=== PATIENT | male | born 1955 | race African-American/Black ===

== ENCOUNTER 2016-12-06 14:45 | Observation (INO) | payer OTHER ==
--- NOTE | ~2016-12-06 | DS ---
Discharge Summary [facility] [address] [place] [place]. [address] NAME: JADE RESENDIZ JR : 53 STATUS : DIS Mihir PAT#: [id number] AGE: 61 ADM/REG DATE : 12/06/16 MR#: [id number] REPORT SERV DATE: 12/09/16 DICTATED BY: GEORGI OLMSTEAD DATE: 12/08/16 REPORT STATUS : Draft TRANSCRIBED BY: MODL DATE: 12/08/16 ADMISSION DATE: 12/06/2016 DISCHARGE DATE: 12/08/2016 INDICATION FOR ADMISSION: Chest pain with left upper extremity pain. DISCHARGE DIAGNOSES: 1. Chest pain, noncardiac with normal cardiac cath. 2. End-stage renal disease, dialyzing Thursday, Thursday, Thursday by right upper extremity AV fistula at [facility]. 3. Hepatitis C. 4. Hypertension. 5. Pulmonary hypertension with right ventricular systolic pressure of 36. 6. History of congestive heart failure. 7. History of lung mass status post biopsy demonstrating benign lesion. 8. Thrombocytopenia. HOSPITAL COURSE: The patient presented with chest pain and left upper extremity pain. His chest pain was somewhat migratory initially on the right side and migrating to the left lower chest. He felt weak with no nausea or vomiting. He subsequently left his grocery store and took some Goody powders and had aspirin. He noted improvement after walking outside. His blood pressure was noted to be in the 180s at time of his ER evaluation. There was a mild elevation in his troponin to 0.45. His EKG demonstrated some ST depression and the lateral leads. Cardiology was consulted and following evaluation, felt that he needed to have a cardiac cath. This was performed on 12/08/2016 and his coronaries were not diseased. No intervention was required. He had only some moderate changes and felt that the clinical findings on EKG and troponin were related to demand ischemia from hypertension. They subsequently signed off. His labs upon release revealed a potassium of 3.9, hemoglobin 11.3, platelet count of 104. BNP of 1807. He was having no complaints at time of release. He will follow up at [facility] for dialysis. DIET: Diet will be renal diet, 1500 mL fluid restriction per day. DISCHARGE MEDICATIONS: Hydrocodone 5/325 one t.i.d. p.r.n., nitroglycerin 0.4 mg sublingual p.r.n. chest pain, Prilosec 40 mg p.o. daily, clonidine 0.3 mg three times daily, calcium acetate 667 mg three tablets with meals, minoxidil 5 mg twice daily, Lopressor 50 mg twice daily, and Nicoderm 7 mg patch applied daily for smoking cessation. ACTIVITY: He will resume pre-hospital activity. DICTATED BY: Tanvir Odell/ADELA Discharge Summary [address] [address] NAME: JADE RESENDIZ : 53 STATUS : DIS Mihir PAT#: [id number] AGE: 61 ADM/REG DATE : 12/06/16 MR#: [id number] REPORT SERV DATE: 12/09/16 DICTATED BY: GEORGI OLMSTEAD DATE: 12/08/16 REPORT STATUS : Draft TRANSCRIBED BY: ADELA DATE: 12/08/16 Georgi Olmstead M.D. / [id number] CC: Tanvir Manning M.D.
--- NOTE | ~2016-12-06 | HP ---
History And Physical [facility] [address] [facility] [address] [place]. [address] NAME: JADE STEWART JR : 53 STATUS : ADM Mihir PAT#: [id number] AGE: 61 ADM/REG DATE : 12/06/16 MR#: [id number] REPORT SERV DATE: 12/06/16 DICTATED BY: DATE: REPORT STATUS : Draft TRANSCRIBED BY: MODFlakito DATE: 12/06/16 DATE OF ADMISSION: 12/06/2016 CHIEF COMPLAINT: Chest pain, left arm pain. HISTORY OF PRESENT ILLNESS: Mr. Stewart is a very pleasant, 61-year-old black male, well known to our service. He has end-stage renal disease, dialyzes at [facility] on Thursday, Thursday, and Thursday. He states, Thursday, went he went to dialysis, he was in his usual state of health, tolerated dialysis without any issues. Left the clinic approximately 8 a.m., then was at the at approximately 3:30 p.m. and developed chest pain. He states it went into his right shoulder and then left. He felt weak and just not himself. When he got up to the register he ate a peanut butter cup, then he had improvement in symptoms, went home. However, today he developed the chest pain again to the left and then on his way here he even had left arm pain. He is not having any pain right now. He did take some Goody's Powders prior to arrival and had aspirin here. He is experiencing no increase in shortness of breath. No associated nausea or diaphoresis with these episodes, but this chest pain and arm pain are very new and unusual. His blood pressure is also noted to be in the 180s. He states, most recently, his blood pressures have been very well controlled. He has not missed any of his medications. No recent medication changes. No fevers, chills, cough, or congestion. No heart studies a number of years. His last was an echocardiogram two years ago and before that he had a stress test, he thinks around 2006- 2007, and he has no formal cardiac followup. An additional history, he did say earlier in the week and even today, he feels like he is having memory issues. He forgot that it was Thursday and did say if he did not know that it was Thursday, he did go to dialysis in the morning, however, he called and got his appointment changed and did have a full treatment on Thursday. He states that this is new and unusual for him and states he still feels like his memory is not quite right today. PAST MEDICAL HISTORY: End-stage renal disease; hypertension; hepatitis C; reflux; pulmonary hypertension; lung mass, status post biopsy, found to be benign with MSSA; CHF is documented in his history, suspect it is diastolic dysfunction, I cannot find an EF on him. FAMILY MEDICAL HISTORY: Negative for end-stage renal disease. SOCIAL HISTORY: He lives with his sister and mother as well as his young child and his son. He states he is very stressed with trying to care for all of these people. He does continue to smoke, but has tried to cut back. No alcohol. He has a distant history of cocaine use, none recent. ALLERGIES: ALCOHOL. MEDICATIONS: The pharmacy is calling right now for a full list. He does tell me around this time that he takes minoxidil and clonidine and so we are going to give him a dose of that and we will look it and find his full list. History And Physical [address] [address] NAME: JADE STEWART JR : 53 STATUS : ADM Mihir PAT#: [id number] AGE: 61 ADM/REG DATE : 12/06/16 MR#: [id number] REPORT SERV DATE: 12/06/16 DICTATED BY: DATE: REPORT STATUS : Draft TRANSCRIBED BY: MODFlakito DATE: 12/06/16 REVIEW OF SYSTEMS: A 12-point review of systems obtained and negative with the exception of that in HPI. PHYSICAL EXAMINATION: VITAL SIGNS: Temperature 97.7, blood pressure is 185/96, respiratory rate 18, O2 saturation is 99%, heart rate 64. GENERAL: This is a pleasant, cooperative, black male. He is awake, alert, oriented, sitting up in the bed, in no acute distress. Answers questions appropriately. HEENT: Normocephalic and atraumatic. Conjunctivae clear. Sclerae anicteric. Pupils are equal and round. Oral mucosa is moist. NECK: Supple. Carotids are brisk. Neck veins are flat. No lymphadenopathy. RESPIRATIONS: Even and unlabored. Breath sounds are clear to auscultation. HEART: Rate is regular. No murmur, rub, or gallop. ABDOMEN: Soft and nontender. Bowel sounds are active. No masses or hepatosplenomegaly. No bruits. No CVA tenderness. BACK: Within normal limits. EXTREMITIES: Without any edema, cyanosis, clubbing. SKIN: Warm, dry, and intact. No unusual rashes or skin lesions. NEURO: No focal deficits. PSYCH: Mood and affect are very pleasant and appropriate. PERTINENT LABS AND X-RAYS: BNP of 1807. Sodium 135, potassium 4, chloride 98, CO2 of 30, BUN of 18, creatinine of 8.7, calcium 9.1, magnesium 2.2, troponin of 0.4. WBC is 3.7, H and H are 11 and 34, platelets 115,000. CT of the head is pending. Chest x-ray, negative for any acute findings. IMPRESSION: 1. Chest pain with radiation to left arm. 2. Accelerated hypertension. 3. End-stage renal disease. 4. History of congestive heart failure. 5. Memory issues. PLAN: Admit to monitored bed. CT of the head has already been ordered by the ER physician and is pending at this time. Serial cardiac enzymes. I will go ahead and order him some minoxidil and clonidine and continue his usual medicines when a full list can be obtained. We will probably need to check an echocardiogram if his pain continues or has elevated troponin. He probably does need a cardiac workup as he has not had one in some time and he does have significant risk factors. Further orders and recommendations pending clinical course. TU/ADELA JULIO CÉSAR [place] History And Physical [address] [address] NAME: JADE STEWART JR : 53 STATUS : ADM Mihir PAT#: [id number] AGE: 61 ADM/REG DATE : 12/06/16 MR#: [id number] REPORT SERV DATE: 12/06/16 DICTATED BY: DATE: REPORT STATUS : Draft TRANSCRIBED BY: ADELA DATE: 12/06/16 / [id number] CC: Tanvir Manning M.D.
--- NOTE | ~2016-12-06 | CN ---
Consultation Report [facility] [address] [place]. [address] NAME: TENZIN STEWART JR : 53 STATUS : ADM Mihir PAT#: [id number] AGE: 61 ADM/REG DATE : 12/06/16 MR#: [id number] REPORT SERV DATE: 12/07/16 DICTATED BY: SPENCER LIZARRAGA DATE: 12/07/16 REPORT STATUS : Draft TRANSCRIBED BY: MODL DATE: 12/07/16 CARDIOLOGY CONSULTATION DATE OF CONSULTATION: REQUESTING PROVIDERS: Dr. Guerrero and Dr. Pagan. INDICATIONS: Abnormal troponin. HISTORY OF PRESENT ILLNESS: Mr. Tenzin Stewart is a 61-year-old, man with a longstanding history of end-stage renal disease on hemodialysis for greater than thirteen years. He has a history of difficult to control hypertension. He was seen in the emergency room yesterday with chest pain, describes it as a bit of a migratory nature, right chest, left chest, sometimes to the arm, associated arm throbness, some nausea, some abdominal discomfort, he is now better, episodes waxed and waned. He presented to the emergency room, found to have abnormal ECG with ST depressions and abnormal troponin, was admitted to the Nephrology. Overnight, he has had some ongoing episodes of discomfort, now resolved and is feeling well. Symptoms began probably one to two days prior to admission, but possibly longer. He reports he has seen Dr. Rico in the past and he thinks he possibly had an arteriogram at some point, but does not remember any details. Ejection fraction not known at the present time. No orthopnea, PND, or lower extremity edema. PAST MEDICAL HISTORY: End-stage renal disease on hemodialysis, history of ongoing smoking, history of lung mass, hepatitis C, pulmonary hypertension. HOME MEDICATIONS: Listed in [facility] home medicine form and reviewed. ALLERGIES: RASH FROM RUBBING ALCOHOL. SOCIAL HISTORY: Ongoing smoking. FAMILY HISTORY: Reviewed. Noted for some relatives with coronary artery disease. REVIEW OF SYSTEMS: As per the HPI. Otherwise, all review of systems negative. PHYSICAL EXAMINATION: VITAL SIGNS: Blood pressure 179/92, pulse is 58, respiratory rate is 18, afebrile. GENERAL: Appears stated age, no distress. EYES: Sclerae anicteric, no arcus senilis. MOUTH: Oral mucosa moist, lips acyanotic. NECK: Jugular venous pressure normal, no carotid bruits. Consultation Report [facility] [id number] [place]. [address] NAME: TENZIN STEWART JR : 53 STATUS : ADM Mihir PAT#: [id number] AGE: 61 ADM/REG DATE : 12/06/16 MR#: [id number] REPORT SERV DATE: 12/07/16 DICTATED BY: SPENCER LIZARRAGA DATE: 12/07/16 REPORT STATUS : Draft TRANSCRIBED BY: MODL DATE: 12/07/16 LUNGS: Clear to auscultation bilaterally, normal inspiratory effort. Scattered rhonchi. CARDIAC: Regular rate and rhythm, no murmurs, gallops or rubs. ABDOMEN: Soft, nondistended, nontender. EXTREMITIES: No edema. SKIN: Warm and dry. NEURO/PSYCH: Alert and oriented, nonfocal, mood appropriate. DATA: Sodium is 132, potassium is 3.9, creatinine 9.8. Hemoglobin of 11.3. Troponin 0.4, 0.35, 0.37. BNP 1807. Electrocardiogram is sinus rhythm with lateral ST depressions consistent with ischemia. IMPRESSION: 1. Abnormal troponin with ST depressions and chest pain, question unstable angina. 2. End-stage renal disease, on hemodialysis. 3. Smoker. 4. Hypertension. RECOMMENDATIONS: Discussed situation with the patient. We will treat with aspirin, statin, heparin, beta jerry, and topical nitroglycerin. Plan to proceed with coronary arteriography and possible percutaneous intervention in the morning. Discussed the procedure with the patient addressing the rationale, logistics, and risks. Risks include, but not limited to bleeding, infection, vascular complications, myocardial infarction, stroke, cardiac perforation, possible emergent surgery. All questions were answered. RACHELE/ADELA Spencer Lizarraga M.D. / [id number] CC: Tanvir Manning M.D.
[2016-12-06 14:28] LABS: BASOPHILS 0.3 %; BASOPHILS ABSOLUTE 0.01 10/3/uL (0.0-0.16); EOSINOPHILS 1.6 %; EOSINOPHILS ABSOLUTE 0.06 10/3/uL (0.0-0.53); HEMATOCRIT 34.9 % (40.0-51.0); HEMOGLOBIN 11.6 g/dL (13.6-17.8); LYMPHOCYTES 29.9 %; MEAN CORPUS HGB CONC 33.2 g/dL (32.0-36.0); MEAN CORPUSCULAR HEMOGLOB 28.7 pg (26.0-34.0); MEAN CORPUSCULAR VOLUME 86.4 fL (80-100); MEAN PLATELET VOLUME 10.6 fL (9.2-13.0); MONOCYTES 10.1 %; MONOCYTES ABSOLUTE 0.37 10/3/uL (0.21-1.20); NEUTROPHILS 58.1 %; NEUTROPHILS ABSOLUTE 2.14 10/3/uL (2.02-8.40); PLATELET COUNT 115 10/3/uL (150-400); RBC DISTRIBUTION WIDTH 13.9 % (12.0-16.0); RED CELL COUNT 4.04 10/6/uL (4.7-6.1)
[2016-12-06 14:32] LABS: ER CBC TAT 0 Hrs 11 Mins; MANUAL DIFF NO %; WHITE BLOOD CELLS 3.7 10/3/uL (4.5-10.5)
[2016-12-06 14:44] LABS: INTERNATIONAL NORMAL RATI 1.1 UNITS (-); PARTIAL THROMBO TIME 34.3 SEC (22.5-37.2); PROTIME (NOT ORD) 14.4 SEC (12.0-14.5)
[~2016-12-06 14:45] MED LIST: *UNABLE1; ASAB PO; CAT3 PO; CENTRUM TAB1 TAB PO; CLONIDINE PO; HALF81 PO; LISINOPRIL; LISINOPRIL40 MG PO; LONITEN10 PO; LONITEN2.5 PO; LOP50 PO; LORTAB 5 PO; METOPROLOL; MINOXIDIL PO; MIRALAXPKT PO; MONOPRIL; NITROII20C TOP; NITROSTAT0.4 MG SL; NORV10 PO; NORV5 PO; PCET PO; PHOSLO; PHOSLO PO; PRILO PO; PRILOSEC40 MG PO; RENAGEL; RENAGEL PO; SPIRIVA INH; VANCO1P; VANCO1P IV; VASOTEC20 MG PO; ZINC220C PO; ZOCOR20 PO; ZOL100 PO; [UNRECOGNIZED DRUG - OTHER]; [UNRECOGNIZED DRUG - OTHER] PO
[2016-12-06 14:46] LABS: CALCIUM, SERUM 9.1 MG/DL (8.5-10.4); CHLORIDE, SERUM 98 MMOL/L (96-112)
[2016-12-06 14:47] LABS: BUN (BLOOD UREA NITROGEN) 18 MG/DL (6-23); CHEST PAIN PROFILE TAT 0 Hrs 26 Mins; CO2 (CARBON DIOXIDE) 30 MMOL/L (24-34); CREATININE 8.72 MG/DL (0.70-1.30); GFR AFRICAN AMERICAN 7 ML/MIN (>=60); GFR NON AFRICAN AMERICAN 6 ML/MIN (>=60); GLUCOSE, SERUM 123 MG/DL (60-99); SODIUM, SERUM 135 MMOL/L (135-148)
[2016-12-06] MEDS ORDERED: PHOSLO PO (15:43)
[2016-12-06] MEDS ORDERED: NORCO1 TA1 PO (15:43)
[2016-12-06] MEDS ORDERED: PRILOSEC40 MG PO (15:44)
[2016-12-06] MEDS ORDERED: CAT3 PO (15:44)
[2016-12-06] MEDS ORDERED: LONITEN2.5 PO (15:44)
[2016-12-06] MEDS ORDERED: LOP50 PO (15:44)
[2016-12-06] MEDS ORDERED: *UNABLE1 (15:44)
[2016-12-06 22:49] LABS: CPK 71 U/L (0-200)
[2016-12-06 22:53] LABS: CK-MB 2.7 NG/ML; TROPONIN I 0.35 NG/ML (<0.05)
[2016-12-07 05:19] LABS: BASOPHILS 0.3 %; BASOPHILS ABSOLUTE 0.01 10/3/uL (0.0-0.16); EOSINOPHILS 2.6 %; HEMATOCRIT 32.8 % (40.0-51.0); HEMOGLOBIN 11.3 g/dL (13.6-17.8); IMMATURE GRANULOCYTES 0.3 %; IMMATURE GRANULOCYTES ABSOLUTE 0.01 10/3/uL (0.0-0.11); LYMPHOCYTES 40.2 %; LYMPHOCYTES ABSOLUTE 1.52 10/3/uL (0.67-4.30); MEAN CORPUS HGB CONC 34.5 g/dL (32.0-36.0); MEAN CORPUSCULAR HEMOGLOB 29.6 pg (26.0-34.0); MEAN CORPUSCULAR VOLUME 85.9 fL (80-100); MONOCYTES 8.5 %; MONOCYTES ABSOLUTE 0.32 10/3/uL (0.21-1.20); NEUTROPHILS 48.1 %; NEUTROPHILS ABSOLUTE 1.82 10/3/uL (2.02-8.40); PLATELET COUNT 104 10/3/uL (150-400); RED CELL COUNT 3.82 10/6/uL (4.7-6.1); WHITE BLOOD CELLS 3.8 10/3/uL (4.5-10.5)
[2016-12-07 05:22] LABS: MANUAL DIFF NO %
[2016-12-07 05:44] LABS: A/G RATIO 0.7 (0.7-1.9); ALBUMIN 3.2 G/DL (3.5-5.0); ALKALINE PHOSPHATASE 102 U/L (45-117); CHLORIDE, SERUM 97 MMOL/L (96-112); CO2 (CARBON DIOXIDE) 27 MMOL/L (24-34); CPK 67 U/L (0-200); GLOBULIN 4.3 G/DL (2.5-4.1); POTASSIUM, SERUM 3.9 MMOL/L (3.5-5.3); SGOT(AST) 26 U/L (5-40); SGPT(ALT) 18 U/L (5-65); SODIUM, SERUM 132 MMOL/L (135-148); TOTAL PROTEIN 7.5 G/DL (6.0-8.5)
[2016-12-07 05:45] LABS: BUN (BLOOD UREA NITROGEN) 26 MG/DL (6-23); CK-MB 3.1 NG/ML; CREATININE 9.86 MG/DL (0.70-1.30); GFR AFRICAN AMERICAN 6 ML/MIN (>=60); GFR NON AFRICAN AMERICAN 5 ML/MIN (>=60); GLUCOSE, SERUM 97 MG/DL (60-99); TOTAL BILIRUBIN 0.5 MG/DL (0-1.2); TROPONIN I 0.37 NG/ML (<0.05)
[2016-12-08 01:29] LABS: BASOPHILS 0.3 %; BASOPHILS ABSOLUTE 0.01 10/3/uL (0.0-0.16); EOSINOPHILS 1.8 %; EOSINOPHILS ABSOLUTE 0.06 10/3/uL (0.0-0.53); HEMATOCRIT 31.2 % (40.0-51.0); HEMOGLOBIN 10.7 g/dL (13.6-17.8); LYMPHOCYTES 44.6 %; LYMPHOCYTES ABSOLUTE 1.52 10/3/uL (0.67-4.30); MEAN CORPUS HGB CONC 34.3 g/dL (32.0-36.0); MEAN CORPUSCULAR HEMOGLOB 28.8 pg (26.0-34.0); MEAN CORPUSCULAR VOLUME 84.1 fL (80-100); MEAN PLATELET VOLUME 9.9 fL (9.2-13.0); MONOCYTES 6.7 %; MONOCYTES ABSOLUTE 0.23 10/3/uL (0.21-1.20); NEUTROPHILS 46.6 %; NEUTROPHILS ABSOLUTE 1.59 10/3/uL (2.02-8.40); PLATELET COUNT 108 10/3/uL (150-400); RBC DISTRIBUTION WIDTH 13.8 % (12.0-16.0); RED CELL COUNT 3.71 10/6/uL (4.7-6.1); WHITE BLOOD CELLS 3.4 10/3/uL (4.5-10.5)
[2016-12-08 01:33] LABS: MANUAL DIFF NO %
[2016-12-08 01:38] LABS: INTERNATIONAL NORMAL RATI 1.1 UNITS (-); PROTIME (NOT ORD) 14.3 SEC (12.0-14.5)
[2016-12-08 01:39] LABS: PARTIAL THROMBO TIME 61.8 SEC (22.5-37.2)
[2016-12-08 01:48] LABS: CALCIUM, SERUM 8.6 MG/DL (8.5-10.4); CHLORIDE, SERUM 96 MMOL/L (96-112); CHOL/HDL RATIO(NOT ORDER) 3.5 (0-5); CHOLESTEROL 145 MG/DL (< 200); CO2 (CARBON DIOXIDE) 27 MMOL/L (24-34); HDL CHOLESTEROL 41 MG/DL (> 39); LDL CHOLESTEROL 87 MG/DL (< 130); NON-HDL CHOLESTEROL 104 MG/DL (< 160); PHOSPHORUS, SERUM 3.7 MG/DL (2.5-4.5); POTASSIUM, SERUM 4.3 MMOL/L (3.5-5.3); SODIUM, SERUM 133 MMOL/L (135-148); TRIGLYCERIDE 85 MG/DL (< 150)
[2016-12-08 01:50] LABS: BUN (BLOOD UREA NITROGEN) 34 MG/DL (6-23); GFR AFRICAN AMERICAN 5 ML/MIN (>=60); GFR NON AFRICAN AMERICAN 4 ML/MIN (>=60); GLUCOSE, SERUM 121 MG/DL (60-99); TROPONIN I 0.33 NG/ML (<0.05)
[2016-12-08] MEDS ORDERED: NITROSTAT0.4 MG SL (12:29)
[2016-12-08] MEDS ORDERED: HABIT7 (16:30)
== END 2016-12-08 18:07 | disposition home or self-care (01) ==
LOC: ER 14:45 → CDU1 16:05 → CDU2 17:08
PROVIDERS: Internal Medicine Nephrology; Nurse Practitioner Family
DX: I21.4 Non-ST elevation (NSTEMI) myocardial infarction (principal); N18.6 End stage renal disease; K21.9 Gastro-esophageal reflux disease without esophagitis; I27.2 Other secondary pulmonary hypertension; I50.9 Heart failure, unspecified; D69.6 Thrombocytopenia, unspecified; F32.9 Major depressive disorder, single episode, unspecified; I13.2 Hypertensive heart and chronic kidney disease with heart failure and with stage 5 chronic kidney disease, or end stage renal disease; F17.200 Nicotine dependence, unspecified, uncomplicated; Z88.8 Allergy status to other drugs, medicaments and biological substances; Z79.899 Other long term (current) drug therapy; Z98.890 Other specified postprocedural states
CPT/HCPCS: 70450; 71010; 80048; 80053; 80061; 80069; 82550; 82553; 83735; 83880; 84484; 85025; 85610; 85730; 93005; 93458; 96372; 99152; 99153; 99285; A9270-GY; C1760; C1769; G0257; G0378; J2250; J3010; Q9967

== ENCOUNTER → 2016-12-15 22:20 | Emergency (ER) | payer OTHER ==
[2016-12-15 21:26] LABS: BASOPHILS 0.3 %; BASOPHILS ABSOLUTE 0.01 10/3/uL (0.0-0.16); EOSINOPHILS ABSOLUTE 0.08 10/3/uL (0.0-0.53); ER CBC TAT 0 Hrs 19 Mins; HEMATOCRIT 32.6 % (40.0-51.0); HEMOGLOBIN 11.3 g/dL (13.6-17.8); IMMATURE GRANULOCYTES 0.3 %; IMMATURE GRANULOCYTES ABSOLUTE 0.01 10/3/uL (0.0-0.11); LYMPHOCYTES 27.3 %; LYMPHOCYTES ABSOLUTE 1.09 10/3/uL (0.67-4.30); MEAN CORPUS HGB CONC 34.7 g/dL (32.0-36.0); MEAN CORPUSCULAR HEMOGLOB 29.7 pg (26.0-34.0); MEAN CORPUSCULAR VOLUME 85.8 fL (80-100); MEAN PLATELET VOLUME 9.9 fL (9.2-13.0); MONOCYTES ABSOLUTE 0.36 10/3/uL (0.21-1.20); NEUTROPHILS 61.1 %; NEUTROPHILS ABSOLUTE 2.45 10/3/uL (2.02-8.40); PLATELET COUNT 131 10/3/uL (150-400); RBC DISTRIBUTION WIDTH 14.1 % (12.0-16.0)
[2016-12-15 21:27] LABS: INTERNATIONAL NORMAL RATI 1.1 UNITS (-); MANUAL DIFF NO %; PROTIME (NOT ORD) 14.3 SEC (12.0-14.5)
[2016-12-15 21:28] LABS: PARTIAL THROMBO TIME 35.1 SEC (22.5-37.2)
[2016-12-15 21:36] LABS: CALCIUM, SERUM 9.3 MG/DL (8.5-10.4); CHEST PAIN PROFILE TAT 0 Hrs 29 Mins; CHLORIDE, SERUM 96 MMOL/L (96-112); CO2 (CARBON DIOXIDE) 28 MMOL/L (24-34); GLUCOSE, SERUM 128 MG/DL (60-99); POTASSIUM, SERUM 3.9 MMOL/L (3.5-5.3); SODIUM, SERUM 132 MMOL/L (135-148)
[2016-12-15 21:38] LABS: BUN (BLOOD UREA NITROGEN) 21 MG/DL (6-23); GFR AFRICAN AMERICAN 7 ML/MIN (>=60); GFR NON AFRICAN AMERICAN 6 ML/MIN (>=60)
[2016-12-15 21:39] LABS: TROPONIN I 0.37 NG/ML (<0.05)
[~2016-12-15 22:20] MED LIST changes: +HABIT7; +NORCO1 TA1 PO
== END | disposition home or self-care (01) ==
LOC: ER 22:20
PROVIDERS: Emergency Medicine
DX: R07.9 Chest pain, unspecified (principal); R79.89 Other specified abnormal findings of blood chemistry; I13.2 Hypertensive heart and chronic kidney disease with heart failure and with stage 5 chronic kidney disease, or end stage renal disease; N18.6 End stage renal disease; I50.9 Heart failure, unspecified; F17.200 Nicotine dependence, unspecified, uncomplicated; D69.6 Thrombocytopenia, unspecified; Z99.2 Dependence on renal dialysis
CPT/HCPCS: 80048; 83735; 84484; 85025; 85610; 85730; 93005; 99285